=== PATIENT | female | born 1995 | race Caucasian/White ===

== ENCOUNTER 2019-09-30 00:49 | Emergency (ER) | payer BC ==
[2019-09-30 00:59] VITALS: RESP 18; TEMP 97.6
[2019-09-30] MEDS ORDERED: SODIUM CHLORIDE 0.9% 1,000 ML IV ONE (01:00)
[2019-09-30 02:33] VITALS: BP 108/64; PULSE 81
--- NOTE | 2019-10-03 07:39 | ED ---
Alcohol HPI - General Chief Complaint: Alcohol Stated Complaint: ETOH Time Seen by Provider: 09/30/19 00:58 Source: patient, EMS Mode of arrival: EMS Limitations: no limitations - History of Present Illness Initial Comments: This patient is 24-year-old woman brought by family was to have evaluation for alcohol intoxication. It was reported that the patient had been drinking a number of alcoholic beverages and then she slumped to the ground. Her friends were not able to get her to stand back up. She also was having multiple episodes of vomiting. At my evaluation, patient denies trauma. No chest pain or dyspnea. She is complaining of nausea. MD Complaint: alcohol intoxication Last Drink: just [employer] -: hour(s) Previous Visits for Alcohol Intoxication?: No Recent Trauma: No Associated Symptoms: nausea, vomiting Treatments Prior to Arrival: none Chronic Alcohol Use: No - Related Data Allergies Allergy/AdvReac Type Severity Reaction Status Date / Time No Known Allergies Allergy Verified 09/30/19 00:59 Review of Systems ROS Statement: Those systems with pertinent positive or pertinent negative responses have been documented in the HPI. ROS Other: All systems not noted in ROS Statement are negative. Constitutional: Denies: fever Respiratory: Denies: cough, dyspnea Cardiovascular: Denies: chest pain, palpitations Gastrointestinal: Reports: nausea, vomiting. Denies: abdominal pain Musculoskeletal: Denies: back pain Neurological: Denies: headache, weakness Past Medical History Past Medical History: No Reported History History of Any Multi-Drug Resistant Organisms: None Reported Past Surgical History: No Surgical Hx Reported Past Psychological History: No Psychological Hx Reported Smoking Status: Light tobacco smoker Past Alcohol Use History: Occasional Past Drug Use History: None Reported General Exam Limitations: no limitations General appearance: alert, in no apparent distress, appears intoxicated Head exam: Present: atraumatic, normocephalic, normal inspection Eye exam: Present: normal appearance, PERRL, EOMI, nystagmus. Absent: scleral icterus, conjunctival injection ENT exam: Present: normal oropharynx Neck exam: Present: normal inspection, full ROM. Absent: tenderness Respiratory exam: Present: normal lung sounds bilaterally. Absent: respiratory distress, wheezes, rales, rhonchi, stridor, chest wall tenderness Cardiovascular Exam: Present: regular rate, normal rhythm, normal heart sounds. Absent: systolic murmur, diastolic murmur, rubs, gallop GI/Abdominal exam: Present: soft. Absent: distended, tenderness, guarding, rebound, rigid, mass Extremities exam: Present: normal inspection, normal capillary refill Back exam: Absent: paraspinal tenderness, vertebral tenderness Neurological exam: Present: alert, oriented X3. Absent: motor sensory deficit Skin exam: Present: warm, dry, intact, normal color. Absent: rash Course Vital Signs 09/30/19 09/30/19 09/30/19 00:52 01:00 02:00 Temperature 97.6 F Pulse Rate 98 90 81 Respiratory 18 18 18 Rate Blood Pressure 132/76 117/67 108/64 O2 Sat by Pulse 97 100 100 Oximetry Medical Decision Making - Medical Decision Making Patient is 24-year-old woman here for suspected alcohol intoxication. Patient has had improvement of the vomiting following antiemetic. Patient observed and after observation. Is able to ambulate without difficulty. She did tolerate oral intake. Patient denies further complaints. Disposition Clinical Impression: Alcoholic intoxication Disposition: HOME SELF-CARE Condition: Good Instructions (If sedation given, give patient instructions): Alcohol Intoxication (ED) Is patient prescribed a controlled substance at d/c from ED?: No Referrals: None,Stated [Primary Care Provider] - 1-2 days
== END 2019-09-30 02:19 | disposition home or self-care (01) ==
LOC: EC 00:49
DX: F10.129 Alcohol abuse with intoxication, unspecified (principal); F17.210 Nicotine dependence, cigarettes, uncomplicated
CPT/HCPCS: 99284

== ENCOUNTER 2020-08-07 06:21 | Day surgery (SDC) | payer BC ==
[2020-08-05 09:17] VITALS: BMI 29.9
[~2020-08-07 06:21] MED LIST: DEXAMETHASONE SOD PHOSPHATE 4 MG/ML 1 ML VIAL IV ONE; LACTATED RINGERS 1,000 ML IV SCH; LIDOCAINE 1% (10MG/ML) FOR IV START INTRADERMA PRN; MIDAZOLAM 2 MG/2 ML VIAL IV PRN
[2020-08-07] MEDS ORDERED: ONDANSETRON 4 MG/2 ML VIAL ONE (06:46)
[2020-08-07] MEDS ORDERED: HYDROmorphone 0.5 MG/0.5 ML SYRINGE IVP PRN (07:00)
[2020-08-07] MEDS ORDERED: SCOPOLAMINE 1.5MG/72HR PATCH TRANSDERM ONE (07:11)
--- NOTE | 2020-08-07 07:12 | P.HPOB ---
History of Present Illness H&P Date: 08/07/20 Chief Complaint: Pelvic pain Patient is a 25-year-old female with pelvic pain. She relates the pain is still solely in her pelvic region and occurs each month. The pain worsens getting close to the menses and then retracts some after the menses and is consistent with endometriosis pain. control pills and nonsteroidal anti- inflammatories have not changed the pain and she is interested in at the very least getting a diagnosis with possible treatment of endometriosis. Risks/benefits/alternatives to a diagnostic laparoscopy with ablation of endometrial implants possible laparotomy were reviewed with the patient in detail and all questions were answered for her prior to proceeding to the operative room. Risks did include but were not limited to bleeding and infection, damage to bladder or bowel, damage to the fallopian tubes, ovaries ovarian injuries, bleeding, infection potential need for further surgery particularly if she has a significant amount of endometriosis. She is aware that endometriosis is a chronic condition and the surgery alone may not be enough to correct problem. She is also aware that it is possible we do a laparoscopy and we find no endometriosis or any clear definitive reason for why she is having the pain. Past Medical History Past Medical History: GERD/Reflux Additional Past Medical History / Comment(s): Hx Gastritis. Occasional heart palpitations/elevated heart rate. Current Ovarian Cyst. History of Any Multi-Drug Resistant Organisms: None Reported Past Surgical History: Orthopedic Surgery Additional Past Surgical History / Comment(s): EGD, right bunionectomy. Past Anesthesia/Blood Transfusion Reactions: No Reported Reaction, Motion Sickness Past Psychological History: Anxiety, Depression Smoking Status: Former smoker Past Alcohol Use History: Occasional Additional Past Alcohol Use History / Comment(s): Has not smoked in 5 yrs. Past Drug Use History: None Reported - Past Family History Mother Family Medical History: No Reported History Medications and Allergies Home Medications Medication Instructions Recorded Confirmed Type Cotrol Pill 1 tab PO QAM 08/05/20 History DULoxetine HCL [Cymbalta] 60 mg PO QAM 08/05/20 08/05/20 History Diltiazem HCl [Cardizem] 120 mg PO DIRECTED PRN 08/05/20 08/05/20 History Ibuprofen 800 mg PO Q8H 08/05/20 08/05/20 History Loratadine [Claritin] 10 mg PO DAILY 08/05/20 08/05/20 History Omeprazole(Unkown Dose) 1 tab PO DAILY 08/05/20 08/05/20 History Promethazine [Phenergan] 12.5 mg PO BID PRN 08/05/20 08/05/20 History Allergies Allergy/AdvReac Type Severity Reaction Status Date / Time No Known Allergies Allergy Verified 08/05/20 09:00 Exam Osteopathic Statement: *. No significant issues noted on an osteopathic structural exam other than those noted in the History and Physical/Consult. Vital Signs Temp Pulse Resp BP Pulse Ox 08/07/20 06:41 97.3 F L 94 20 127/73 100 Intake and Output 08/06/20 08/07/20 08/07/20 22:59 06:59 14:59 Other: Weight 77.3 kg - OBG Physical Exam Breast: both: normal (no masses) Abdomen: bowel sounds normal, no diffuse tenderness, no bruit present, no guarding noted, no hepatomegaly, no splenomegaly, no mass Vulva: both: normal Vagina: normal moisture, no discharge Cervix: no lesion, no discharge Uterus: normal size, normal contour Adnexa: both: normal Anus/Rectum: normal perianal skin, no rectal mass, no hemorrhoids, heme negative
[2020-08-07] MEDS ORDERED: BUPIVACAINE (PF) 0.25% 30 ML VIAL SQ ONE (07:21)
[2020-08-07] MEDS ORDERED: ROCURONIUM 10 MG/ML (5 ML VIAL) IV ONE (07:24)
[2020-08-07] MEDS ORDERED: MIDAZOLAM 2 MG/2 ML VIAL ONE (07:24)
[2020-08-07] MEDS ORDERED: NEOSTIGMINE 1 MG/ML 10 ML VIAL ONE (07:24)
[2020-08-07] MEDS ORDERED: KETOROLAC 15 MG/ML 1 ML VIAL ONE (07:24)
[2020-08-07] MEDS ORDERED: PROPOFOL 10 MG/ML 20 ML VIAL IV ONE (07:24)
[2020-08-07] MEDS ORDERED: GLYCOPYRROLATE 0.2 MG/ML 2 ML VIAL ONE (07:24)
[2020-08-07] MEDS ORDERED: fentaNYL (PF) 50 MCG/ML 2 ML AMP ONE (07:24)
[2020-08-07] MEDS ORDERED: LIDOCAINE 1% INJ 10MG/ML (20 ML MDV) ONE (07:24)
--- NOTE | 2020-08-07 08:11 | P.OP ---
Date of Procedure: 08/07/20 Preoperative Diagnosis: Pelvic pain Postoperative Diagnosis: Same Procedure(s) Performed: Diagnostic laparoscopy Anesthesia: MAGY Surgeon: Oswald Moran Estimated Blood Loss (ml): 5 IV fluids (ml): 400 Urine output (ml): 50 Pathology: none sent Condition: stable Disposition: same day Operative Findings: Normal pelvic anatomy Description of Procedure: Patient states the operative suite where a general anesthetic was found be adequate. She was prepped and draped in the normal sterile fashion and placed in the dorsal lithotomy position. Initially a speculum was inserted in vagina and anterior lip of the cervix was identified and grasped with single tooth tenaculum. Cervix was dilated and a uterine manipulator was inserted without difficulty. Junior catheter previously been placed. Other incidents were then removed and gloves were changed and attention was turned to the abdominal portion procedure. Initially 2 mL of quarter percent Marcaine was injected periumbilically and through this injected anesthetic a 5 mm skin incision was made. Through this incision, under direct visualization with an optical trocar and sleeve, the camera was inserted. Once peritoneal placement was assured gas was allowed to fully insufflate the abdomen and patient's placement steep Trendelenburg position. A second 5 mm skin incision was then made 3 cm above the pubic symphysis in the midline and a port and sleeve were inserted through this under direct visualization. Observations the pelvis were noted. Thorough investigation of pelvis including posterior ovarian fossa is cul-de-sac anterior bladder uterus tubes and all pertinent ligaments were visualized and no endometriosis, scarring or other pathology is identified. Appendix appears grossly normal liver and gallbladder also appeared grossly normal. All incidents then removed and gas was allowed to expel from the abdomen. 5 deep breaths were provided during this process. 4-0 Vicryl was then used to close incision subcuticularly and the remaining lidocaine was injected around the incisions. Sponge, lap, needle counts were all correct 2. Manipulator was then removed from the vagina. Patient was then taken to the recovery room in stable and satisfactory condition with the Junior catheter removed at this time. Plan - Discharge Summary Discharge Rx Participant: No New Discharge Prescriptions: New Ibuprofen [Motrin] 600 mg PO Q6HR PRN #30 tab PRN Reason: Pain HYDROcodone/APAP 5-325MG [[place] 5-325] 1 tab PO Q4HR PRN #30 tab PRN Reason: Pain No Action Ibuprofen 800 mg PO Q8H Omeprazole(Unkown Dose) 1 tab PO DAILY Diltiazem HCl [Cardizem] 120 mg PO DIRECTED PRN PRN Reason: Palpitations/elevated HR Promethazine [Phenergan] 12.5 mg PO BID PRN PRN Reason: Nausea Cotrol Pill 1 tab PO QAM Loratadine [Claritin] 10 mg PO DAILY DULoxetine HCL [Cymbalta] 60 mg PO QAM Discharge Medication List Cotrol Pill 1 tab PO QAM 08/05/20 [History] DULoxetine HCL [Cymbalta] 60 mg PO QAM 08/05/20 [History] Diltiazem HCl [Cardizem] 120 mg PO DIRECTED PRN 08/05/20 [History] Ibuprofen 800 mg PO Q8H 08/05/20 [History] Loratadine [Claritin] 10 mg PO DAILY 08/05/20 [History] Omeprazole(Unkown Dose) 1 tab PO DAILY 08/05/20 [History] Promethazine [Phenergan] 12.5 mg PO BID PRN 08/05/20 [History] HYDROcodone/APAP 5-325MG [[place] 5-325] 1 tab PO Q4HR PRN #30 tab 08/07/20 [Rx] Ibuprofen [Motrin] 600 mg PO Q6HR PRN #30 tab 08/07/20 [Rx] Follow up Appointment(s)/Referral(s): Oswald Moran DO [Doctor of Osteopathic Medicine] - 1 Week Patient Instructions/Handouts: *Surgery [facility] - Scopalamine Patch Instructions Activity/Diet/Wound Care/Special Instructions: Heavy lifting, limit stairs and driving, and pelvic rest. If any high temperatures, heavy bleeding, or severe pain call my office
[2020-08-07 08:20] VITALS: TEMP 98.2
[2020-08-07 09:10] VITALS: RESP 16
[2020-08-07 09:41] VITALS: BP 107/55; PULSE 78
== END 2020-08-07 09:49 | disposition home or self-care (01) ==
LOC: OR 06:21
PROVIDERS: ATTEND Obstetrics & Gynecology
DX: R10.2 Pelvic and perineal pain (principal); K21.9 Gastro-esophageal reflux disease without esophagitis; F41.9 Anxiety disorder, unspecified; F32.9 Major depressive disorder, single episode, unspecified; Z79.899 Other long term (current) drug therapy; Z87.891 Personal history of nicotine dependence; I47.1 Supraventricular tachycardia
CPT/HCPCS: 81025; 49320; J2250; J1100; J2710; J0690; J2405; J2001; J3010; J1885; J2704